=== PATIENT | female | born 1995 | race Hispanic/Latino ===

== ENCOUNTER 2020-12-08 09:16 | Outpatient (CLI) | payer OTHER ==
[2020-12-08 17:44] LABS: SARS-CoV-2 PCR by NAA Not Detected (NotDetected)
== END 2020-12-08 09:17 | disposition home or self-care (01) ==
LOC: CSHLAB 09:16
PROVIDERS: ATTEND Family Medicine
DX: Z20.822 Contact with and (suspected) exposure to COVID-19 (principal)
CPT/HCPCS: 87635; U0003; U0005

== ENCOUNTER 2020-12-11 21:09 | Inpatient (IN) | payer MEDICAID, OTHER, SELFPAY ==
[2020-12-11] MEDS: Lactated Ringer's 1,000 ML IV SCH ×2 (21:25→23:21)
[2020-12-11] MEDS ORDERED: NS / Oxytocin 40 units/1000ml 1,000 ML IV PRN (22:25)
[2020-12-11] MEDS ORDERED: Carboprost 250 MCG/ML AMP IM PRN (22:25)
[2020-12-11] MEDS ORDERED: Misoprostol 200 MCG TAB PR PRN (22:25)
[2020-12-11] MEDS ORDERED: Lidocaine 1% (PF) 30 ML VIAL SC PRN (22:25)
[2020-12-11] MEDS ORDERED: Methylergonovine 0.2 MG/ML VIAL IM PRN (22:25)
[2020-12-11] MEDS ORDERED: Promethazine HCl 25 MG/ML VIAL IM PRN (22:25)
[2020-12-11] MEDS ORDERED: HYDROcodone/Acetaminophen 5/325 mg Tablet PO PRN (22:25)
[2020-12-11] MEDS ORDERED: Ibuprofen 800 MG TAB PO PRN (22:25)
[2020-12-11] MEDS ORDERED: Acetaminophen 500 MG TAB PO PRN (22:25)
[2020-12-11] MEDS ORDERED: hydrALAZINE 20 MG/ML VIAL SLOW IVP PRN (22:25)
[2020-12-11] MEDS ORDERED: Diphenoxylate HCl/Atropine Tablet PO PRN (22:25)
[2020-12-11] MEDS ORDERED: Ondansetron PF 4 MG/2 ML Vial IVP PRN (22:25)
[2020-12-11] MEDS ORDERED: Butorphanol Tartrate 1 MG/ML VIAL SLOW IVP PRN (22:25)
[2020-12-11] MEDS: Misoprostol 100 MCG TAB ONE (22:45)
[2020-12-11] MEDS: Misoprostol 100 MCG TAB VAG SCH (22:45)
[2020-12-11] MEDS ORDERED: NS w/ Oxytocin 30 units 500 ML IV PRN (22:46)
[2020-12-11] MEDS ORDERED: Penicillin G Potassium 5 MILL.UNITS in Sodium Chloride 0.9% 100 ML IVPB SCH (23:00)
[2020-12-11 23:13] VITALS: BMI 27.3
[2020-12-12] MEDS: Misoprostol 100 MCG TAB ONE (00:42)
[2020-12-12] MEDS ORDERED: Penicillin G 2.5 MILL.units 2.5 MILL.UNITS in Premix Bag 1 BAG IVPB SCH (03:00)
[2020-12-12 03:37] LABS: Syphilis Antibody Nonreactive (Nonreactive); Syphilis Antibody Index 0.05 S/CO (<1.00 Non-Reactive)
[2020-12-12 03:38] LABS: Hep B Surf Ag NonReactive S/CO (NonReactive)
[2020-12-12] MEDS ORDERED: Fentanyl 4 mcg/Bup 0.1% Cadd 100 ML ONE (03:38)
[2020-12-12 03:40] LABS: HBSAg Index 0.13 S/CO (0-0.99)
[2020-12-12] MEDS ORDERED: NS w/ Oxytocin 30 units 500 ML ONE (04:00)
[2020-12-12] MEDS ORDERED: Lidocaine 1% (PF) 30 ML VIAL ONE (04:01)
[2020-12-12] MEDS ORDERED: Acetaminophen/Codeine 30-300mg Tablet PO PRN ×2 (04:17)
[2020-12-12] MEDS ORDERED: Adacel (T-DAP) 0.5 ML SYRINGE IM ONE (04:17)
[2020-12-12] MEDS ORDERED: Benzocaine-Menthol 82.5 ML CAN TOP PRN (04:17)
[2020-12-12] MEDS ORDERED: Measles/Mumps/Rubella 10 MCG/0.5 ML VIAL SC ONE (04:17)
[2020-12-12] MEDS ORDERED: Lanolin Ointment 7 GM TUBE TOP PRN (04:17)
[2020-12-12] MEDS ORDERED: Milk Of Magnesia 30 ML UDCUP PO PRN (04:17)
[2020-12-12] MEDS ORDERED: Bisacodyl 10 MG SUPP PR PRN (04:17)
[2020-12-12] MEDS ORDERED: Varicella virus, LIVE 0.5 ML VIAL SC ONE (04:17)
[2020-12-12] MEDS ORDERED: hydrALAZINE 20 MG/ML VIAL SLOW IVP PRN (04:17)
[2020-12-12] MEDS ORDERED: NS w/ Oxytocin 30 units 500 ML IV SCH (04:30)
[2020-12-12 08:26] LABS: Mean Corpuscular HGB CONC 33.5 g/dL (32.0-36.0); Mean Corpuscular Volume 86.5 fl (81.6-98.3); Mean Platelet Volume 12.2 fl (7.4-10.4); Platelet Count 185 10x3/uL (150-450); Red Blood Cell (RBC) Count 3.79 10x6/uL (3.90-5.03); White Blood Cell (WBC) Count 13.5 10x3/uL (3.5-10.5)
[2020-12-12] MEDS: Misoprostol 100 MCG TAB VAG SCH (09:32)
[2020-12-12] MEDS: Docusate Calcium (SURFAK) 240 MG CAP PO SCH ×2 (09:33→22:35)
[2020-12-12] MEDS: Prenatal Vitamin 1 TAB PO SCH (09:33)
[2020-12-12] MEDS: Ibuprofen 800 MG TAB PO SCH ×3 (09:33→22:35)
[2020-12-12] MEDS: Ferrous Sulfate 325 MG TAB PO SCH ×2 (09:33→16:17)
[2020-12-12] MEDS: Lactated Ringer's 1,000 ML IV SCH (16:17)
[2020-12-13] MEDS: Lactated Ringer's 1,000 ML IV SCH ×2 (00:51→07:22)
[2020-12-13 04:38] VITALS: TEMP 98.2
[2020-12-13] MEDS: Ibuprofen 800 MG TAB PO SCH (06:17)
[2020-12-13 06:48] LABS: Hemoglobin 10.9 g/dL (12.0-15.5)
[2020-12-13] MEDS: Ferrous Sulfate 325 MG TAB PO SCH (07:23)
[2020-12-13 08:01] VITALS: BP 104/52
[2020-12-13] MEDS: Prenatal Vitamin 1 TAB PO SCH (08:43)
[2020-12-13] MEDS: Docusate Calcium (SURFAK) 240 MG CAP PO SCH (08:43)
== END 2020-12-13 11:38 | disposition home or self-care (01) | DRG 807 ==
LOC: CSHLD 21:09 → CSHPP 12-12 08:00 → EDSTATUS 12-18 09:26
PROVIDERS: ADMIT Family Medicine; ATTEND Family Medicine
PROC: 3E033VJ Introduction of Other Hormone into Peripheral Vein, Percutaneous Approach (ICD-10-PCS; 2020-12-11)
PROC: 10E0XZZ Delivery of Products of Conception, External Approach (ICD-10-PCS; principal; 2020-12-12)
PROC: 0HQ9XZZ Repair Perineum Skin, External Approach (ICD-10-PCS; 2020-12-12)
DX: O70.0 First degree perineal laceration during delivery (principal); Z37.0 Single live birth; Z3A.39 39 weeks gestation of pregnancy; Z20.822 Contact with and (suspected) exposure to COVID-19
CPT/HCPCS: 85014; 85018; 85027; 86780; 86850; 86900; 86901; 87340; J2590

== ENCOUNTER 2024-09-28 10:22 | Inpatient (IN) | payer MEDICAID, OTHER ==
[2024-09-28] MEDS ORDERED: Diphenoxylate HCl/Atropine Tablet PO PRN (12:10)
[2024-09-28] MEDS ORDERED: Carboprost 250 MCG/ML AMP IM PRN (12:10)
[2024-09-28] MEDS ORDERED: Methylergonovine 0.2 MG/ML VIAL IM PRN (12:10)
[2024-09-28] MEDS ORDERED: Ibuprofen 800 MG TAB PO PRN (12:10)
[2024-09-28] MEDS ORDERED: fentaNYL 50 mcg/mL 1 mL Vial SLOW IVP PRN (12:10)
[2024-09-28] MEDS ORDERED: Acetaminophen 500 MG TAB PO PRN (12:10)
[2024-09-28] MEDS ORDERED: HYDROcodone/Acetaminophen 5/325 mg Tablet PO PRN (12:10)
[2024-09-28] MEDS ORDERED: Promethazine HCl 25 MG/ML VIAL IM PRN ×3 (12:10→18:44)
[2024-09-28] MEDS ORDERED: Tranexamic Acid 1,000 MG/10 ML VIAL IVP PRN (12:10)
[2024-09-28] MEDS ORDERED: hydrALAZINE 20 MG/ML VIAL SLOW IVP PRN ×2 (12:10→18:44)
[2024-09-28] MEDS ORDERED: Misoprostol 200 MCG TAB PR PRN (12:10)
[2024-09-28] MEDS ORDERED: Lidocaine 1% (PF) 30 ML VIAL SC PRN (12:10)
[2024-09-28] MEDS ORDERED: Ondansetron PF 4 MG/2 ML Vial IVP PRN ×3 (12:10→18:44)
[2024-09-28] MEDS ORDERED: Oxytocin 30 units/NS 500 ML 500 ML IV SCH ×2 (12:15)
[2024-09-28 12:21] LABS: Hematocrit 36.2 % (34.9-44.5); Hemoglobin 11.8 g/dL (12.0-15.5); Mean Corpuscular HGB CONC 32.6 g/dL (32.0-36.0); Mean Corpuscular Volume 82.8 fL (81.6-98.3); Mean Platelet Volume 12.6 fL (7.4-10.4); Platelet Count 188 10x3/uL (150-450); Red Blood Cell (RBC) Count 4.37 10x6/uL (3.90-5.03); White Blood Cell (WBC) Count 8.47 10x3/uL (3.5-10.5)
[2024-09-28 13:37] LABS: HBsAg Index 0.17 S/CO (0-0.99); Hep B Surf Ag - L&D Non-Reactive S/CO (NonReactive); Syphilis Antibody Nonreactive (Nonreactive); Syphilis Antibody Index 0.13 S/CO (<1.00 Non-Reactive)
[2024-09-28] MEDS: fentaNYL/Ropivacaine Epidural 100 ML ONE (14:20)
[2024-09-28] MEDS: Lactated Ringer's 1,000 ML IV SCH (14:23)
[2024-09-28] MEDS: Oxytocin 30 units/NS 500 ML 500 ML IV SCH (14:23)
[2024-09-28] MEDS ORDERED: Naloxone HCl 0.4 mg/ml Vial IVP PRN ×2 (14:29)
[2024-09-28] MEDS ORDERED: Acetaminophen 325 MG TAB PO PRN (14:29)
[2024-09-28] MEDS ORDERED: diphenhydrAMINE 50 MG/ML VIAL IVP PRN (14:29)
[2024-09-28] MEDS ORDERED: Moisturizing Cream (Eucerin) 113 GM JAR TOP PRN (14:29)
[2024-09-28] MEDS ORDERED: ePHEDrine Sulfate 50 MG/10 ML VIAL SLOW IVP PRN (14:29)
[2024-09-28] MEDS ORDERED: Lactated Ringer's 500 ML IV PRN (14:29)
[2024-09-28] MEDS ORDERED: Communication Order-Pharmacy FS SCH (14:30)
[2024-09-28] MEDS ORDERED: fentaNYL 2 mcg/Ropivacaine 0.2% Epidural 100 ML CADD EPIDURAL SCH (14:30)
[2024-09-28] MEDS ORDERED: diphenhydrAMINE 25 MG CAP PO PRN (18:44)
[2024-09-28] MEDS ORDERED: Lanolin Ointment 7 GM TUBE TOP PRN (18:44)
[2024-09-28] MEDS ORDERED: Milk Of Magnesia 30 ML UDCUP PO PRN (18:44)
[2024-09-28] MEDS ORDERED: Bisacodyl 10 MG SUPP PR PRN (18:44)
[2024-09-28] MEDS ORDERED: Benzocaine-Menthol 82.5 ML CAN TOP PRN (18:44)
[2024-09-28] MEDS: Boostrix 0.5 ML (Tdap) VIAL (>/=7 yrs of age) IM ONE (19:03)
[2024-09-28] MEDS: Docusate 100 MG CAP PO SCH (20:28)
[2024-09-28] MEDS: Ibuprofen 800 MG TAB PO SCH (22:17)
[2024-09-29] MEDS: Ferrous Sulfate 325 MG TAB PO SCH (07:55)
[2024-09-29] MEDS: Prenatal Vitamin 1 TAB PO SCH (08:04)
[2024-09-29] MEDS ORDERED: HYDROcodone/Acetaminophen 5/325 mg Tablet PO PRN (14:31)
[2024-09-29 15:56] VITALS: BP 98/54; TEMP 98
== END 2024-09-29 17:20 | disposition home or self-care (01) | DRG 807 ==
LOC: CSHLD 10:22 → OBSVTOIN 12:10 → CSHPP 18:30
PROVIDERS: ADMIT Family Medicine; ATTEND Family Medicine
PROC: 10907ZC Drainage of Amniotic Fluid, Therapeutic from Products of Conception, Via Natural or Artificial Opening (ICD-10-PCS; 2024-09-28)
PROC: 10E0XZZ Delivery of Products of Conception, External Approach (ICD-10-PCS; principal; 2024-09-29)
DX: O80 Encounter for full-term uncomplicated delivery (principal); Z37.0 Single live birth; Z3A.38 38 weeks gestation of pregnancy
CPT/HCPCS: 85027; 86780; 86850; 86900; 86901; 87340; J2590; J7120